=== PATIENT | female | born 1990 | race Caucasian/White ===

== ENCOUNTER 2022-06-15 05:57 | Emergency (ER) | payer MEDICAID ==
[~2022-06-15] VITALS: Ht 167.6 cm; Wt 100.0 kg
[2022-06-15] MEDS ORDERED: ACETAMINOPHEN 325MG TABLET PO STA (07:30)
[2022-06-15] MEDS ORDERED: SODIUM CHLORIDE 0.9% 1,000 ML IV ONE (07:30)
[2022-06-15 08:12] LABS: BASOPHILS % 0.3 % (0.0-2.0); EOSINOPHILS % 0.1 % (0.0-5.0); HEMATOCRIT. 39.8 % (36.0-48.0); HEMOGLOBIN. 13.6 g/dL (12.0-16.0); LYMPHOCYTES % 17.3 % (20.0-50.0); MEAN CORPUSCULAR HEMOGLOBIN 29.6 pg (28.0-32.0); MEAN CORPUSCULAR VOLUME 86.4 fL (81.0-99.0); MEAN PLATELET VOLUME 8.2 fl (7.4-10.4); MONOCYTES % 5.7 % (2.0-8.0); NEUTROPHILS % 76.6 % (40.0-76.0); PLATELET 327 x1000/uL (130-400); RED BLOOD CELL COUNT 4.61 mill/uL (4.2-5.4); RED CELL DISTRIBUTION WIDTH 13.7 % (11.6-14.6)
[2022-06-15 08:15] LABS: CHLORIDE 106 mEq/L (98-107)
[2022-06-15 09:32] LABS: HCG SCREEN NEGATIVE
[2022-06-15 12:00] VITALS: BP 125/81
[2022-06-15] MEDS ORDERED: CYCLOBENZAPRINE 10MG TABLET PO NR (12:30)
[2022-06-15] MEDS ORDERED: KETOROLAC 15MG/ML VIAL IV NR (12:30)
== END 2022-06-15 13:04 | disposition home or self-care (01) ==
LOC: ER 06:09
DX: R07.89 Other chest pain (principal); I10 Essential (primary) hypertension; E11.65 Type 2 diabetes mellitus with hyperglycemia; Z20.822 Contact with and (suspected) exposure to COVID-19; R68.83 Chills (without fever)
CPT/HCPCS: 36415; 71045; 80053; 84484; 84703; 85025; 85379; 87426; 87804; 93005; 96360; 96361; 99285; C9803; J7030; J1885